=== PATIENT | female | born 1950 | race Caucasian/White ===

== ENCOUNTER 2018-08-25 07:43 | Day surgery (SDC) | payer MEDICARE, OTHER ==
[~2018-08-25 07:43] MED LIST: SUCCINYLCHOLINE CHLORIDE 100 MG/5 ML SYG IV
[2018-08-25] MEDS: ACETAMINOPHEN 500 MG TAB PO (08:29)
[2018-08-25] MEDS ORDERED: MIDAZOLAM 1 MG/ML 2 ML INJ (11:16)
[2018-08-25] MEDS ORDERED: FENTAnyl 50 MCG/ML VIAL (11:16)
[2018-08-25] MEDS ORDERED: PROPOFOL 40 ML (11:16)
[2018-08-25] MEDS ORDERED: ONDANSETRON 4 MG INJ (11:17)
[2018-08-25] MEDS ORDERED: CLINDAMYCIN 600 MG/D5W (PMX) 50 ML IVPB (11:17)
[2018-08-25] MEDS ORDERED: FAMOTIDINE 20 MG INJ (11:17)
[2018-08-25] MEDS ORDERED: LIDOCAINE 2% (SDV) 5 ML INJ (11:17)
[2018-08-25] MEDS ORDERED: PROVENTIL HFA 6.7GM INHALER (11:17)
[2018-08-25] MEDS ORDERED: DEXAMETHASONE 4 MG/ML 5 ML INJ (11:17)
[2018-08-25] MEDS ORDERED: ROCURONIUM 50 MG INJ (11:17)
[2018-08-25] MEDS ORDERED: SUGAMMADEX SODIUM 200 MG/2 ML VIAL IV (12:18)
[2018-08-25] MEDS: BUPIVACAINE 0.5%/EPI (SDV) 30 ML INJ (12:40)
[2018-08-25] MEDS: LIDOCAINE 1% (MPF) 30 ML INJ (12:41)
[2018-08-25] MEDS: ISOSULFAN BLUE 1% 5 ML INJ SC (12:41)
[2018-08-25] MEDS ORDERED: IBUPROFEN 600 MG TAB PO (14:00)
[2018-08-25] MEDS ORDERED: ONDANSETRON 4 MG INJ IV (14:00)
[2018-08-25] MEDS ORDERED: ACETAMINOPHEN 325 MG TAB PO (14:00)
[2018-08-25] MEDS ORDERED: LABETALOL HCL 20MG INJ IV (14:30)
[2018-08-25] MEDS ORDERED: MEPERIDINE 25 MG INJ IV (14:30)
[2018-08-25] MEDS ORDERED: FENTAnyl 50 MCG/ML VIAL IV ×2 (14:30)
[2018-08-25] MEDS ORDERED: hydrALAzine 20 MG INJ IV (14:30)
[2018-08-25] MEDS ORDERED: ALBUTEROL 0.083% (NEB) 2.5 MG/3 ML AMP HHN (14:30)
[2018-08-25] MEDS: METOCLOPRAMIDE 10 MG INJ IV (14:38)
[2018-08-25] MEDS: ONDANSETRON 4 MG INJ IV (14:58)
== END 2018-08-25 16:30 | disposition home or self-care (01) ==
LOC: SDS 07:43
DX: D05.11 Intraductal carcinoma in situ of right breast (principal); I10 Essential (primary) hypertension; E78.5 Hyperlipidemia, unspecified; J44.9 Chronic obstructive pulmonary disease, unspecified; E66.9 Obesity, unspecified; Z68.32 Body mass index [BMI] 32.0-32.9, adult
CPT/HCPCS: 19301; 88307; 88331; 88342